=== PATIENT | female | born 1965 | race Caucasian/White ===

== ENCOUNTER 2017-11-27 19:28 | Emergency (ER) | payer OTHER ==
--- NOTE | 2017-11-27 19:47 | EDM.PDOC ---
ED HPI GENERAL MEDICAL PROBLEM - General Chief Complaint: Cardiovascular Problem Stated Complaint: BLOOD CLOT IN LUNG / ONCOLOGIST Time Seen by Provider: 11/27/17 19:45 Source of Information: Reports: Patient History Limitations: Reports: No Limitations - History of Present Illness INITIAL COMMENTS - FREE TEXT/NARRATIVE: states had total body bone scan & CAT of chest yesterday at [facility] cancer f/ u and [employer] oncologist called them she has a blood clot in her lungs and need to be seen. pt denies CP/SOB and feels ok. - Related Data Allergies Allergy/AdvReac Type Severity Reaction Status Date / Time Sulfa (Sulfonamide Allergy Hives Verified 11/27/17 19:35 Antibiotics) Home Meds: Home Meds Cholecalciferol (Vitamin D3) [Vitamin D] 5,000 unit PO DAILY 11/27/17 [History] Magnesium Oxide [Magnesium] 500 mg PO DAILY 11/27/17 [History] Propranolol HCl [Propranolol] 10 mg PO BID 11/27/17 [History] Riboflavin 500 mg PO DAILY 11/27/17 [History] Tamoxifen Citrate 20 mg PO DAILY 11/27/17 [History] amLODIPine Besylate [Amlodipine Besylate] 10 mg PO DAILY 11/27/17 [History] Past Medical History Other Cardiovascular History: vertigo Musculoskeletal History: Reports: Fracture, Neck Pain, Chronic, Other (See Below ) Other Musculoskeletal History: Cerivcal fx (2012) Neurological History: Reports: Migraines, Other (See Below) Other Neuro History: Menieres Disease Other Psychiatric History: Pt reports: Anxiety Oncologic (Cancer) History: Reports: Breast - Past Surgical History Female Surgical History: Reports: Section Oncologic Surgical History: Reports: Mastectomy, Other (See Below) Other Oncologic Surgeries/Procedures: Bilateral Social & Family History - Tobacco Use Smoking Status *Q: Never Smoker Second Hand Smoke Exposure: No - Recreational Drug Use Recreational Drug Use: No ED ROS GENERAL - Review of Systems Review Of Systems: ROS reveals no pertinent complaints other than HPI. ED EXAM, GENERAL - Physical Exam Exam: See Below Exam Limited By: No Limitations General Appearance: Alert, WD/WN, No Apparent Distress Ears: Hearing Grossly Normal Throat/Mouth: Normal Voice, No Airway Compromise Head: Atraumatic Neck: Non-Tender, Full Range of Motion Respiratory/Chest: No Respiratory Distress, Lungs Clear, Normal Breath Sounds, No Accessory Muscle Use Cardiovascular: Regular Rate, Rhythm GI/Abdominal: Soft, Non-Tender Neurological: Alert, Oriented, Normal Cognition, Normal Gait, No Motor/Sensory Deficits Psychiatric: Normal Affect, Normal Mood Skin Exam: Warm, Dry, Normal Color Lymphatic: No Adenopathy Course - Vital Signs Last Recorded V/S: Last Vital Signs Temp 37.1 C 11/27/17 19:32 Pulse 71 11/27/17 21:20 Resp 18 11/27/17 21:20 BP 148/80 H 11/27/17 21:20 Pulse Ox 98 11/27/17 21:20 - Orders/Labs/Meds Labs: Laboratory Tests 11/27/17 11/27/17 11/27/17 Range/Units 19:55 19:55 19:55 WBC 8.4 (5.0-10.0) 10^3/uL RBC 4.56 (4.2-5.4) 10^6/uL Hgb 13.9 (12.0-16.0) g/dL Hct 41.4 (37.0-47.0) % MCV 90.8 (80-100) fL MCH 30.5 (27.0-34.0) pg MCHC 33.6 (33.0-35.0) g/dL Plt Count 269 (150-450) 10^3/uL Neut % (Auto) 56.8 (42.2-75.2) % Lymph % (Auto) 33.5 (20.5-50.1) % Becker % (Auto) 7.2 (2-8) % Eos % (Auto) 2.4 (1.0-3.0) % Baso % (Auto) 0.1 (0.0-1.0) % PT 8.8 L (9.0-12.0) SEC INR 0.9 (0.9-1.2) APTT 22.5 (22.0-34.0) SEC D-Dimer, Quantitative 836 H (0-400) ng/mL Sodium 139 (135-145) mmol/L Potassium 3.5 L (3.6-5.0) mmol/L Chloride 104 (101-111) mmol/L Carbon Dioxide 25.0 (21.0-31.0) mmol/L Anion Gap 13.5 BUN 9 (7-18) mg/dL Creatinine 0.9 (0.6-1.3) mg/dL Est Cr Clr Drug Dosing 54.55 mL/min Estimated GFR (MDRD) > 60 BUN/Creatinine Ratio 10.00 Glucose 105 (74-105) mg/dL Calcium 9.1 (8.4-10.2) mg/dl Total Bilirubin 0.2 (0.2-1.0) mg/dL AST 29 (10-42) IU/L ALT 31 (10-60) IU/L Alkaline Phosphatase 80 (42-121) IU/L Total Protein 7.8 (6.7-8.2) g/dl Albumin 3.9 (3.2-5.5) g/dl Globulin 3.9 Albumin/Globulin Ratio 1.00 Meds: Medications Discontinued Medications Generic Name Dose Route Start Last Admin Trade Name Freq PRN Reason Stop Dose Admin Enoxaparin Sodium 95 mg 11/27/17 20:48 Lovenox SUBCUT 11/27/17 20:49 ONETIME ONE Enoxaparin Sodium 100 mg 11/27/17 20:51 11/27/17 21:13 Lovenox SUBCUT 11/27/17 20:52 100 mg ONETIME ONE Administration - Re-Assessments/Exams Free Text/Narrative Re-Assessment/Exam: 11/27/17 20:51 results discussed with pt and case discussed with Dr Weinberg who rec' lovenox subq with xarelito 15mg bid f/u. Departure - Departure Time of Disposition: 21:22 Disposition: Home, Self-Care 01 Condition: Good Clinical Impression: Pulmonary embolism Qualifiers: Pulmonary embolism type: other Chronicity: acute Acute cor pulmonale presence: without acute cor pulmonale Qualified Code(s): I26.99 - Other pulmonary embolism without acute cor pulmonale Instructions: Pulmonary Embolism Referrals: PCP,Not In Area [Primary Care Provider] - Forms: ED Department Discharge Additional Instructions: 1) rest and avoid vigorous activity next 48 hours 2) return if develops fever, intense shortness of breath, chest pain, or any change or concern 3) notify family doctor Wednesday rx given; xarelito 15mg bid x 3 week
[2017-11-27 20:27] LABS: ANION GAP 13.5; CHLORIDE,CL 104 mmol/L (101-111); SODIUM,NA 139 mmol/L (135-145)
[2017-11-27] MEDS ORDERED: Enoxaparin 100 MG/1 ML Syringe SUBCUT ONE ×2 (20:48→20:51)
== END 2017-11-27 21:23 | disposition home or self-care (01) ==
LOC: DL.ED 19:28
DX: I26.99 Other pulmonary embolism without acute cor pulmonale (principal); Z88.2 Allergy status to sulfonamides
CPT/HCPCS: 36415; 80053; 85025; 85379; 85610; 85730; 96372; 99284; J1650

== ENCOUNTER 2019-07-16 13:32 | Emergency (ER) | payer MEDICARE, OTHER ==
--- NOTE | 2019-07-16 14:47 | EDM.PDOC ---
ED HPI GENERAL MEDICAL PROBLEM - General Chief Complaint: General Stated Complaint: WEAK/SHAKY/POSSIBLE INFLUENZA Time Seen by Provider: 07/16/19 15:45 Source of Information: Reports: Patient, RN, RN Notes Reviewed History Limitations: Reports: No Limitations - History of Present Illness INITIAL COMMENTS - FREE TEXT/NARRATIVE: Patient presents to the ER with spouse with complaints of fatigue, fever, cough , sore throat and malaise x1 day. She states that she has taken Tylenol 500mg prior to arrival. Spouse has been sick for 2 days. She denies any shortness of breath, chest pain, palpitations at this time. Denies smoking or history of asthma. Onset Date: 07/15/19 Location: Reports: Generalized Quality: Reports: Ache Severity: Mild Improves with: Reports: None Worsens with: Reports: None Associated Symptoms: Reports: No Other Symptoms Head Pain Score (Numeric/FACES): 6 - Related Data Allergies Allergy/AdvReac Type Severity Reaction Status Date / Time hydromorphone [From Dilaudid] Allergy Vomiting Verified 07/16/19 14:07 Sulfa (Sulfonamide Allergy Hives Verified 07/16/19 14:07 Antibiotics) Home Meds: Home Meds Cholecalciferol (Vitamin D3) [Vitamin D] 5,000 unit PO DAILY 11/27/17 [History] Magnesium Oxide [Magnesium] 500 mg PO DAILY 11/27/17 [History] Riboflavin 500 mg PO DAILY 11/27/17 [History] Tamoxifen Citrate 20 mg PO DAILY 11/27/17 [History] amLODIPine Besylate [Amlodipine Besylate] 10 mg PO DAILY 11/27/17 [History] Past Medical History Other Cardiovascular History: vertigo Musculoskeletal History: Reports: Fracture, Neck Pain, Chronic, Other (See Below ) Other Musculoskeletal History: Cerivcal fx (2013) Neurological History: Reports: Migraines, Other (See Below) Other Neuro History: Menieres Disease Other Psychiatric History: Pt reports: Anxiety Oncologic (Cancer) History: Reports: Breast - Past Surgical History Female Surgical History: Reports: Section Oncologic Surgical History: Reports: Mastectomy, Other (See Below) Other Oncologic Surgeries/Procedures: Bilateral Social & Family History - Tobacco Use Smoking Status *Q: Current Every Day Smoker Years of Tobacco use: 30 Packs/Tins Daily: 0.5 - Caffeine Use Caffeine Use: Reports: Coffee - Alcohol Use Days Per Week of Alcohol Use: 1 Number of Drinks Per Day: 1 Total Drinks Per Week: 1 - Recreational Drug Use Recreational Drug Use: No ED ROS GENERAL - Review of Systems Review Of Systems: Comprehensive ROS is negative, except as noted in HPI. ED EXAM, GENERAL - Physical Exam Exam: See Below Exam Limited By: No Limitations General Appearance: Alert, WD/WN, Moderate Distress Eye Exam: Bilateral Eye: Normal Inspection Ears: Normal External Exam, Normal Canal, Hearing Grossly Normal, Normal TMs Nose: Normal Inspection, Normal Mucosa, No Blood Throat/Mouth: Normal Inspection, Normal Lips, Normal Teeth, Normal Gums, Normal Oropharynx, Normal Voice, No Airway Compromise Head: Atraumatic, Normocephalic Neck: Normal Inspection, Supple, Non-Tender, Full Range of Motion Respiratory/Chest: No Respiratory Distress, Lungs Clear, Normal Breath Sounds, No Accessory Muscle Use, Chest Non-Tender Cardiovascular: Normal Peripheral Pulses, Regular Rate, Rhythm, No Edema, No Gallop, No JVD, No Murmur, No Rub GI/Abdominal: Normal Bowel Sounds, Soft, Non-Tender, No Organomegaly, No Distention, No Abnormal Bruit, No Mass (Female) Exam: Deferred Rectal (Female) Exam: Deferred Psychiatric: Normal Affect, Normal Mood Skin Exam: Warm, Dry, Intact, Normal Color, No Rash Lymphatic: No Adenopathy Course - Vital Signs Last Recorded V/S: Last Vital Signs Temp 100.8 F H 07/16/19 14:08 Pulse 119 H 07/16/19 14:08 Resp 18 07/16/19 14:08 BP 145/90 H 07/16/19 14:08 Pulse Ox 96 07/16/19 14:08 - Orders/Labs/Meds Orders: Active Orders 24 hr Category Date Time Status Acetaminophen [Tylenol] Med 07/16/19 15:58 Once 650 mg PO NOW ONE Oseltamivir [Tamiflu] Med 07/16/19 15:58 Once 75 mg PO ONETIME ONE Medication Orders Acetaminophen (Tylenol) 650 mg PO NOW ONE Stop: 07/16/19 15:59 Oseltamivir Phosphate (Tamiflu) 75 mg PO ONETIME ONE Stop: 07/16/19 15:59 Labs: Influenza A: Positive. Influenza B: Negative. Meds: Medications Generic Name Dose Route Start Last Admin Trade Name Freq PRN Reason Stop Dose Admin Acetaminophen 650 mg 02/16/20 15:58 Tylenol PO 07/16/19 15:59 NOW ONE Oseltamivir Phosphate 75 mg 07/16/19 15:58 Tamiflu PO 07/16/19 15:59 ONETIME ONE - Re-Assessments/Exams Free Text/Narrative Re-Assessment/Exam: 07/16/19 16:03 Reviewed lab results with patient and spouse. Tamiflu 75mg and Tylenol 650mg administered. RX with Tamiflu sent with patient. Recommended she push fluids and rest. Salt water gargles 2 to 3 times a day for sore throat. Tylenol p.r.n. every 6 hours not exceeding 4,000 mg a day recommended. Follow up in clinic if symptoms persist. Departure - Departure Time of Disposition: 16:05 Disposition: Home, Self-Care 01 Condition: Good Clinical Impression: Influenza A - Discharge Information Instructions: Influenza, Adult, [id number] Forms: ED Department Discharge Additional Instructions: Follow up with PCP as discussed. RX: Tamiflu 75 mg b.i.d. x5 days. Push fluids. Rest. Sepsis Event Note - Evaluation Sepsis Screening Result: No Definite Risk - Focused Exam Vital Signs: Vital Signs Temp Pulse Resp BP Pulse Ox 07/16/19 14:08 100.8 F H 119 H 18 145/90 H 96 Date Exam was Performed: 07/16/19 Time Exam was Performed: 15:58 - My Orders Last 24 Hours: My Active Orders 07/16/19 15:58 Acetaminophen [Tylenol] 650 mg PO NOW ONE Oseltamivir [Tamiflu] 75 mg PO ONETIME ONE - Assessment/Plan Last 24 Hours: My Active Orders 07/16/19 15:58 Acetaminophen [Tylenol] 650 mg PO NOW ONE Oseltamivir [Tamiflu] 75 mg PO ONETIME ONE
[2019-07-16] MEDS ORDERED: Acetaminophen 325 MG Tab PO ONE (15:58)
[2019-07-16] MEDS ORDERED: Oseltamivir 75 MG Cap PO ONE (15:58)
== END 2019-07-16 16:24 | disposition home or self-care (01) ==
LOC: DL.ED 13:32
DX: J10.1 Influenza due to other identified influenza virus with other respiratory manifestations (principal); F17.210 Nicotine dependence, cigarettes, uncomplicated; Z88.6 Allergy status to analgesic agent; Z88.2 Allergy status to sulfonamides
CPT/HCPCS: 87804; 99283; A9270